=== PATIENT | female | born 1995 | race Caucasian/White ===

== ENCOUNTER 2019-12-12 22:15 | Emergency (ER) | payer OTHER ==
[~2019-12-12] VITALS: Ht 175.3 cm; Wt 108.4 kg
[2019-12-12] MEDS ORDERED: PROGESTERONE200 MG PO (22:44)
== END 2019-12-13 01:04 | disposition home or self-care (01) ==
LOC: ED 22:15
DX: O20.0 Threatened abortion (principal); Z3A.01 Less than 8 weeks gestation of pregnancy; Z88.0 Allergy status to penicillin; Z88.2 Allergy status to sulfonamides; Z88.1 Allergy status to other antibiotic agents; Z79.899 Other long term (current) drug therapy
CPT/HCPCS: 76801; 76817; 80048; 81001; 84702; 85025; 86900; 86901; 99284-25

== ENCOUNTER 2020-03-02 11:51 | Emergency (ER) | payer OTHER ==
[~2020-03-02] VITALS: Ht 175.3 cm; Wt 108.4 kg
[~2020-03-02 11:51] MED LIST: PROGESTERONE200 MG PO
== END 2020-03-02 16:11 | disposition home or self-care (01) ==
LOC: ED 11:51
DX: O99.891 Other specified diseases and conditions complicating pregnancy (principal); R10.9 Unspecified abdominal pain; Z88.0 Allergy status to penicillin; Z88.2 Allergy status to sulfonamides; Z88.1 Allergy status to other antibiotic agents; Z3A.17 17 weeks gestation of pregnancy
CPT/HCPCS: 51701; 76775; 76815; 81001; 99284-25

== ENCOUNTER 2022-07-26 10:46 | Emergency (ER) | payer OTHER ==
[~2022-07-26] VITALS: Ht 175.3 cm; Wt 108.4 kg
[2022-07-26 12:50] VITALS: BP 142/83
== END 2022-07-26 12:50 | disposition home or self-care (01) ==
LOC: ED 10:46
DX: M23.91 Unspecified internal derangement of right knee (principal); W18.09XA Striking against other object with subsequent fall, initial encounter; Z88.0 Allergy status to penicillin; Z88.2 Allergy status to sulfonamides; Z88.1 Allergy status to other antibiotic agents
CPT/HCPCS: 73560; 99283-25